=== PATIENT | male | born 1990 | race Caucasian/White ===

== ENCOUNTER 2021-06-11 00:17 | Emergency (ER) | payer BC, SELFPAY ==
[2021-06-11 00:19] VITALS: BP 162/99; PULSE 91; RESP 18; TEMP 36.3; O2SAT 97; BMI 39.2
--- NOTE | 2021-06-11 01:00 | US_ITS ---
We are attempting to reach an attending provider to discuss findings. An addendum with communication details will be sent when the communication is complete. EXAM: US Scrotum CLINICAL INDICATION: 31 years old, Male; right testicle pain TECHNIQUE: Realtime ultrasound of the testicles was performed with grayscale and Color Doppler analysis. This report was created using [employer] report generation technology. COMPARISON: None. FINDINGS: Right testicle: There are multiple heterogeneous and hypoechoic areas in the right testicle. No internal blood flow within these hypoechoic areas consistent with testicular rupture. No focal lesion. Normal blood flow is present. Left testicle: Unremarkable. Normal in size and echotexture. No focal lesion. Normal blood flow is present. Epididymides: Unremarkable. Normal in size and echotexture, without focal lesion. Normal color Doppler flow pattern in the epididymis. Scrotum: Small right hydrocele. No varicocele. US/Testicular with Arterial Flow IMPRESSION: 1. There are multiple heterogeneous and hypoechoic areas in the right testicle. No internal blood flow within these hypoechoic areas consistent with testicular rupture. 2. Small right hydrocele. ASSESSMENT: CRITICAL report - There are critical findings in this report that will likely impact patient care. A conference call has been initiated to alert the referring caregiver of the critical findings. Electronically Signed: Cosmo Neal MD at 2:44 EDT Tel , Service support ,
--- NOTE | 2021-06-11 01:01 | EDS_ITS ---
HPI History of Present Illness Chief Complaint: Male Pain/Injury Narrative Narrative: 30-year-old male presenting with right testicular pain. This is been hurting him for a few days. Notes that it is worse with working. He states that he feels like he might have an infection of his testicle. He denies any systemic signs or symptoms. He denies any direct trauma. Denies dysuria hematuria. PFSH PFSH Home Medications NK 06/11/21 [History Last Taken Unknown] Allergy/AdvReac Type Severity Reaction Status Date / Time No Known Allergies Allergy Verified 06/11/21 00:18 Social History Smoking Status: Never smoker ROS ROS ED Constitutional Constitutional ED: Denies chills, fever(s) or sweats Eyes Eyes: Denies blurry vision or change in vision ENT ENT ED: Denies rhinorrhea or sore throat Cardiovascular Cardiovascular: Denies chest pain Respiratory/Chest Respiratory/Chest: Denies cough or dyspnea Gastrointestinal Gastrointestinal: Denies abdominal pain, nausea or vomiting Genitourinary Genitourinary ED: Reports other Details: Right testicular pain ; Denies dysuria or hematuria Integumentary Denies rash Neurologic Neurologic: Denies headache(s) or weakness EXAM Physical Exam Const Vital Signs: 06/11/21 00:19 06/11/21 02:55 06/11/21 05:22 Temperature 97.3 F L Temperature Source Temporal Pulse Rate 91 79 Respiratory Rate 18 18 16 Blood Pressure 162/99 H 125/79 H Blood Pressure Mean 120 94 Pulse Ox 97 97 Oxygen Delivery Method Room Air Positive well nourished General Appearance ED: NAD HEENT normocephalic and atraumatic Resp normal respiratory effort and clear to auscultation bilaterally Cardio regular rate and regular rhythm Penis: normal penis Scrotum: testes descended bilaterally, cremasteric reflex present and scrotal swelling right Neuro Sensorium / Orientation: alert Skin Lesions: no lesions Rashes: no rashes MDM MDM MDM Narrative Medical decision making narrative: Patient presenting with right testicle pain. He states this is nontraumatic. He states he does working lifting [employer] and noticed that the pain became severe. He has been having intermittent pain since Monday but today was different any pain. Severely nauseous. He arrived several hours after the pain started and his pain is actually improving. On testicular exam he only had mild pain. The testicle was not high riding. There is no blue dot sign. Initially obtained a testicular ultrasound and the radiologist did read this as testicular rupture and had no blood flow. This is suspicious for torsion given he has had no direct trauma. I discussed the case with Dr. Pennington who refused to see the patient because he is a male. She requested that I transfer the patient. I did obtain an accepting physician at [facility] in [place]. He will consult urology. There was delay in care given that the patient had to be transported. I did obtain lab work while waiting for transport and this is all normal. Impression: 1. Testicular torsion Lab Data Attestation: I reviewed the patient's lab results. Labs: Laboratory Results - last 24 hr 06/11/21 06/11/21 06/11/21 01:15 03:20 Unknown WBC 10.0 RBC 5.12 Hgb 15.6 Hct 47.6 MCV 93.0 MCH 30.5 MCHC 32.8 RDW Std Deviation 47.3 H RDW Coeff of Alf 13.8 Plt Count 268 MPV 10.7 Immature Gran % (Auto) 0.600 Neut % (Auto) 64.3 Lymph % (Auto) 24.2 Spencer % (Auto) 8.3 Eos % (Auto) 2.1 Baso % (Auto) 0.5 Absolute Neuts (auto) 6.5 Absolute Lymphs (auto) 2.43 Nucleated RBC % 0 PT 13.2 INR 1.1 Sodium Potassium Chloride Carbon Dioxide Anion Gap BUN Creatinine Estim Creat Clear Calc Est GFR (MDRD) Af Amer Est GFR (MDRD) Non-Af BUN/Creatinine Ratio Glucose Calcium Urine Color Yellow Urine Clarity Clear Urine pH 6.5 Ur Specific [place] 1.015 Urine Protein Negative Urine Glucose (UA) Normal Urine Ketones Negative Urine Occult Blood 10 H Urine Nitrite Negative Urine Bilirubin Negative Urine Urobilinogen 1 H Ur Leukocyte Esterase Negative Urine RBC 0 SEEN Urine WBC 0 SEEN Ur Squamous Epith Cells 0 SEEN Urine Bacteria 1+ Urine Mucus 0 SEEN 06/11/21 Unknown WBC RBC Hgb Hct MCV MCH MCHC RDW Std Deviation RDW Coeff of Alf Plt Count MPV Immature Gran % (Auto) Neut % (Auto) Lymph % (Auto) Spencer % (Auto) Eos % (Auto) Baso % (Auto) Absolute Neuts (auto) Absolute Lymphs (auto) Nucleated RBC % PT INR Sodium 141 Potassium 3.9 Chloride 108 H Carbon Dioxide 28.0 Anion Gap 5 BUN 11 Creatinine 0.81 Estim Creat Clear Calc 146.59 Est GFR (MDRD) Af Amer 142 Est GFR (MDRD) Non-Af 117 BUN/Creatinine Ratio 13.6 Glucose 96 Calcium 8.9 Urine Color Urine Clarity Urine pH Ur Specific [place] Urine Protein Urine Glucose (UA) Urine Ketones Urine Occult Blood Urine Nitrite Urine Bilirubin Urine Urobilinogen Ur Leukocyte Esterase Urine RBC Urine WBC Ur Squamous Epith Cells Urine Bacteria Urine Mucus Radiography Diagnostic Testing: Radiology Impression Testicular Ultrasound 06/11/21 01:00 IMPRESSION: 1. There are multiple heterogeneous and hypoechoic areas in the right testicle. No internal blood flow within these hypoechoic areas consistent with testicular rupture. 2. Small right hydrocele. ASSESSMENT: CRITICAL report - There are critical findings in this report that will likely impact patient care. A conference call has been initiated to alert the referring caregiver of the critical findings. Electronically Signed: Cosmo Neal MD at 2:44 EDT Tel , Service support , ADDENDUM: 06/11/21 0254 IMPRESSION: 1. There are multiple heterogeneous and hypoechoic areas in the right testicle. No internal blood flow within these hypoechoic areas consistent with testicular rupture. 2. Small right hydrocele. ASSESSMENT: CRITICAL report - There are critical findings in this report that will likely impact patient care. A conference call has been initiated to alert the referring caregiver of the critical findings. N.B. : The above Results were Read Back by Cosmo Neal MD to Dr. Albino DO, and understanding confirmed on 06/11/2021 02:47:26 (ET). Electronically Signed: Cosmo Neal MD at 2:44 EDT Tel , Service support , Discharge Plan Triage Chief Complaint: Male Pain/Injury ED Provider: Cam Posada Dx/Rx/DC Orders Prescriptions: No Action NK RF: 0 Primary Care Provider: Fast,Shante Referrals: Fast,Shante, DO [Primary Care Provider] - Disposition Disposition: Acute Care Hospital Discharge Location: [facility] Discharge Date/Time: 06/11/21 05:23
[2021-06-11 01:19] LABS: Mucous, Urine 0 SEEN /hpf (<or=2+); Red Blood Cells-Urine 0 SEEN /hpf (0-5); Squamous Epithelial Cells - UA 0 SEEN /hpf (0-5); White Blood Cells 0 SEEN /hpf (0-5)
[2021-06-11 01:21] LABS: Color, Urine Yellow (Yellow); Glucose, Dipstick Normal (Normal); Ketone-Dipstick Negative (Negative); Leukocyte Esterase-Dipstick Negative /ul (Negative); Nitrite-Dipstick Negative (Negative); Occult Blood-Urine 10 /ul (Negative); Protein-Dipstick Negative (Negative); Specific Gravity, Urine 1.015 (1.002-1.030); Urine Bilirubin Dipstick Negative (Negative); Urine Clarity Clear (Clear); Urine Urobilinogen 1 mg/dl (Normal); Urine pH 6.5 (5.0 - 8.0)
[2021-06-11 01:53] LABS: Bacteria 1+ /hpf (None Seen)
[2021-06-11 02:55] VITALS: RESP 18
--- NOTE | 2021-06-11 03:08 | ED.RN ---
attempted transfer of patient to [facility], [facility], and [facility] at this time. None of the above hospitals are accepting at this time.
--- NOTE | 2021-06-11 03:09 | ED.RN ---
[facility] called for transfer they took information will call back
[2021-06-11 03:52] LABS: Absolute Lymphocyte Count 2.43 X10^3/uL (0.83-4.51); Absolute Neutrophil Count 6.5 X10^3/uL (2.0-7.7); Basophil# 0.05 X10^3/uL; Basophil% 0.5 % (0-1); Eosinophil# 0.21 X10^3/uL; Eosinophils% 2.1 % (0-5); Hematocrit 47.6 % (40-54); Hemoglobin 15.6 g/dL (13.0-16.5); Lymphocyte # 2.43 X10^3/ul (0.83-4.51); Lymphocyte % 24.2 % (19-41); Mean Corp Hgb Conc 32.8 g/dL (32-36); Mean Corpuscular Hgb 30.5 pg (27.0-32.0); Mean Platelet Vol. 10.7 fl (6.2-12.0); Monocyte# 0.83 X10^3/uL; Monocyte% 8.3 % (0-10); NRBC Flagged by Analyzer 0 % (0-5); Neutrophil # 6.46 X10^3/uL (2.7-7.7); Neutrophil % 64.3 % (47-70); Platelet Count 268 K/mm3 (150-450); RBC Distribution Width CV 13.8 % (11.6-14.6); RBC Distribution Width SD 47.3 fl (35.1-43.9); Red Blood Count 5.12 M/mm3 (4.6-6.2)
[2021-06-11 04:03] LABS: International Normalized Ratio 1.1; Prothrombin Time (Protime)PT. 13.2 SECONDS (11.7-14.9)
[2021-06-11 04:10] LABS: Anion Gap 5 (5-15); BUN 11 mg/dL (7-18); BUN/Creat Ratio 13.6 RATIO (10-20); Calcium,Total 8.9 mg/dL (8.5-10.1); Chloride 108 mmol/L (98-107); Creatinine, Serum 0.81 mg/dL (0.70-1.30); EST Glomerular Filtration Rate 117 mL/min (>60); Est Glom Filt Rate - Afr Amer 142 mL/min (>60); Estimated Creatinine Clearance 146.59 ml/min; Glucose 96 mg/dL (74-106); Potassium 3.9 mmol/L (3.5-5.1); Sodium Level 141 mmol/L (136-145)
[2021-06-11 05:22] VITALS: BP 125/79; PULSE 79; RESP 16; O2SAT 97
== END 2021-06-11 05:23 | disposition short-term general hospital (02) ==
PROVIDERS: Emergency Provider Student in an Organized Health Care Education/Training Program; PCP Internal Medicine
DX: N44.00 Torsion of testis, unspecified (principal); N43.3 Hydrocele, unspecified
CPT/HCPCS: 76870; 80048; 81001; 85025; 85610; 87426; 93976; 99285; A4216

== ENCOUNTER 2022-08-27 18:07 | Emergency (ER) | payer BC, SELFPAY ==
[2022-08-27 18:08] VITALS: BP 142/85; PULSE 95; RESP 17; TEMP 37.3; O2SAT 96; BMI 33.9
--- NOTE | 2022-08-27 20:37 | EDS_ITS ---
HPI History of Present Illness HPI Narrative: Patient presents with laceration to his left index finger that occurred today. Patient was using a razor knife when it slipped and he cut his left index finger. Patient states it is over the dorsum of his left index finger along the middle phalanx. Patient states he tried to close the wound with Band-Aids but was unable to keep it closed. Patient states the bleeding stopped after several minutes of pressure. Patient denies any paresthesias or weakness. Patient states it is worse with palpation. Patient states nothing makes it better. Patient is unsure of his last tetanus. Chief Complaint: Laceration Informant: patient Occured/Mechanism Mechanism/Context: Yes other see comment below Comment: Cut with razor knife Onset/Context/Timing Onset: Today Context: Sudden Onset Timing: Continuous Quality of Pain: Dull Location: Left index finger Worsened by: Palpation Relieved by: Nothing Associated Symptoms Associated Symptoms: Negative for Parasthesia, Weakness or Loss of Funtion Narrative Tetanus Immunization: Unknown [facility] Medical History De Quervain's tenosynovitis, right Medial epicondylitis of right elbow Home Medications cyclobenzaprine 10 mg tablet 10 mg PO HS PRN muscle spasm #10 tabs 08/04/22 [Rx Last Taken Unknown] prednisone 10 mg tablet 10 mg PO DAILY #30 tabs 08/04/22 [Rx Last Taken Unknown] cephalexin 500 mg capsule 500 mg PO Q6 #40 CAPSULES 08/27/22 [Rx Last Taken Unknown] Allergy/AdvReac Type Severity Reaction Status Date / Time No Known Allergies Allergy Verified 08/27/22 18:07 Surgical History no surgical history no surgical history Social History Smoking Status: Never smoker ROS ROS ED Constitutional Constitutional ED: Denies chills or fever(s) Eyes Eyes: Denies blurry vision or change in vision ENT ENT ED: Denies rhinorrhea or sore throat Cardiovascular Cardiovascular: Denies chest pain or palpitations Respiratory/Chest Respiratory/Chest: Denies cough or dyspnea Gastrointestinal Gastrointestinal: Denies nausea or vomiting Genitourinary Genitourinary ED: Denies dysuria or hematuria Musculoskeletal Musculoskeletal: Denies back pain or neck pain Integumentary Denies abscess or rash Neurologic Neurologic: Denies headache(s) or weakness Allergic/Immunologic Allergic/Immunologic ED: Denies mouth swelling or urticaria EXAM Physical Exam Const Vital Signs: 08/27/22 18:08 Temperature 99.2 F H Temperature Source Temporal Pulse Rate 95 Respiratory Rate 17 Blood Pressure 142/85 H Blood Pressure Mean 104 Pulse Ox 96 Oxygen Delivery Method Room Air Positive well nourished and well developed General Appearance ED: well developed and NAD HEENT Reports moist mucous membranes Neck full ROM and supple Extremity Extremity Narrative: There is a 2 cm full-thickness linear laceration over the dorsal aspect of the there is mild gapping of the wound margins. There are no foreign bodies noted. Strength is 5/5 in extension of the MP, PIP, and DIP joints. Sensation was intact to light touch in all digits. Capillary refill was less than 2 seconds in all digits. Neuro oriented x3, CN's II-XII intact bilaterally, moves all extremities, no focal motor deficits and no sensory deficits noted Sensorium / Orientation: alert Motor Exam: strength 5/5 throughout Psych mental status grossly normal MDM MDM MDM Narrative Medical decision making narrative: The wound was cleaned and irrigated with copious amounts of normal saline. The wound was anesthetized with 1% plain lidocaine via digital block. The wound was closed with 4 simple interrupted #4-0 nylon sutures under sterile technique. Patient tolerated the procedure well. Bacitracin dressing was applied. Patient was given a dose of Keflex here. Patient was given a prescription for Keflex. Patient was instructed to keep the wound clean and dry. Patient was instructed to follow-up with his primary care physician in 7 days for wound recheck and suture removal. Patient understood and was agreeable with the plan. All questions were answered. Procedures Lacerations Left index finger: Length: 2 cm Depth: Sub Q Shape: Linear Prep: Sterile Conditions and Chlorhexadine Laceration repair: Digital block, Irrigated, Lidocaine, Skin sutures and Wound explored Irrigated (ml): 60 Number of Sutures/Ed: 4 Suture Information: Ethilon, Simple and 4-0 Discharge Plan Triage Chief Complaint: Laceration ED Provider: Miguel Larkin Dx/Rx/DC Orders Clinical Impression: Laceration of left index finger Instructions: ED Laceration, Hand: All Closures Prescriptions: New cephalexin [cephalexin] 500 MG capsule 500 mg PO Q6 Qty: 40 0RF No Action prednisone 10 mg tablet 10 mg PO DAILY Qty: 30 0RF Rx Instructions: 4 tablets daily x 3 days, then 3 tablets daily x 3 days, then 2 tablets daily x 3 days, then 1 tablet daily x 3 days cyclobenzaprine 10 mg tablet 10 mg PO HS PRN (Reason: muscle spasm) Qty: 10 0RF Primary Care Provider: Shante Pal Referrals: Shante Pal DO [Primary Care Provider] - 7 Days for suture removal Disposition Disposition: Home, Self Care
[2022-08-27] MEDS: Lidocaine 1% (20 ml mdv) 20 ML Vial INFILT (21:09)
[2022-08-27] MEDS: Diphth,Pertuss(Acell),Tet Vac 0.5 ML Vial IM (21:10)
== END 2022-08-27 22:21 | disposition home or self-care (01) ==
PROVIDERS: Emergency Provider Emergency Medicine; PCP Internal Medicine; Visit Provider Emergency Medicine
DX: S61.211A Laceration without foreign body of left index finger without damage to nail, initial encounter (principal); W26.0XXA Contact with knife, initial encounter; Z23 Encounter for immunization
CPT/HCPCS: 12001; 90715; 96372; 99282

== ENCOUNTER 2022-09-05 08:00 | Outpatient (RCR) | payer OTHER, BC, SELFPAY ==
--- NOTE | 2022-08-19 07:30 | HP.OTEVAL_ITS ---
Patient's Visit Information TRANG MACARIO is a 32 year old M, referred to Occupational Therapy by LIZANDRO Mcintosh, with a diagnosis of right DeQuervain's, right medial epi. Date of Evaluation: 08/18/22 Occupational Therapist: Altagracia Smith, OTR/Charlie, CHT - Subjective This 32 year old male was seen for OT eval with dx right DeQuervain's tenosynovitis, right medial epicondylitis - radial styloid tenosynovitis right- pt states while working on 07/13/22 he felt a pop and pain in his right wrist- pain increased and he had difficulty with work tasks and daily tasks pt states he is right handed. works for [employer] for 15 yeas -currently on light duty using wrist brace. pt would like to return to his PLOF. - ADLs Comments: pain with swinging hammer. pain with picking up is son. pain with movement of wrist - Pain right wrist 5 Pain Intensity Range: 3, 8 - ROM Wrist: right 65/45 left 60/50 ROM Comments: right RD 20 left 25*. right UE 30 left 25* - Strength Wine Sales Representative: right 110# left 115# Lateral Pinch: right 18# left 24# Tripod Pinch: right 18# left 24# - Sensation Sensation Comments: denies - Quick DASH-Disab of Arm,Shoulder& Hand Quick DASH Score: 48.3325 - Goals Goal:: pt will report pain no greater than 1/10 with use of right hand with ADLs and work tasks by d/c Goal:: pt will demo understanding of using brace/orthosis for protection of tendon structure and to increase healing by end of 2nd visit. Goal:100% adherence to protocol: Yes Goal:ROM equal to unaffected hand: Yes Goal:Wine Sales Representative/Pinch strength at least 75% of unaffected hand: Yes Goal:No pain with affected hand use: Yes - Rehabilitation General Assessment: PT seen for initial eval this day- pt demo with painful palpation to right radial styloid 1st dorsal region - pt painful with radial and ulnar deviation limiting IND with ADLs and IADLs. pt would benefit from skilled OT services 2x week for 4 weeks- Today therapist ed. pt on dx. wrist ergonomics and avoidance of lifting with wrist in flexed position- pt demo understanding - pt agree to POC. Rehabilitation Potential: Good - Anticipated Interventions A/AAROM/PROM, Strengthening, Triggerpoint Release, Modalities, Orthoses, Joint Protection/Energy Conservation, Ergonomic Education, Education re Diagnosis - Visit Plan Frequency: 2-3x /Week Duration: 4 Weeks TEXT: Thank you for the opportunity to evaluate your patient. For Medicare and Medicare HMO plans, please review the plan of care and approve it. It will need to be FAXED BACK to us at [phone] for Medicare purposes. Please let me know if there are questions or concerns regarding this plan of care. Physician Signature: Date:
== END 2022-09-05 19:00 | disposition home or self-care (01) ==
LOC: OT 08:00
PROVIDERS: PCP Internal Medicine; Referring Provider Physician Assistant; Visit Provider Physician Assistant
DX: M77.01 Medial epicondylitis, right elbow (principal); M65.4 Radial styloid tenosynovitis [de Quervain]
CPT/HCPCS: 97035; 97110; 97140; 97166; 97530